=== PATIENT | male | born 1960 | race Hispanic/Latino ===

== ENCOUNTER 2022-12-03 11:07 | Day surgery (SDC) | payer BC ==
--- NOTE | 2022-11-19 10:49 | RAD REPORT ---
EXAM DESCRIPTION: Stewart Escobedo And Graciela (2 Views)11/19/2022 10:23 am CLINICAL HISTORY: Hypertension/preop pending cystoscopy COMPARISON: None FINDINGS: The lungs appear clear of acute infiltrate. The heart is normal size IMPRESSION: No acute abnormalities displayed
[2022-11-19 11:00] LABS: Absolute Lymphocytes (CBC) 1.2 K/uL (0.7-4.9); Hematocrit 46.1 % (39.6-49.0); Lymphocytes % 26.9 % (15.3-44.8); MCV 88.2 fL (80-100); MPV 8.9 fL (7.6-11.3); RBC Red Blood Cell Count 5.23 M/uL (4.33-5.43)
[2022-11-19 11:15] LABS: Potassium 4.1 mmol/L (3.5-5.1)
--- NOTE | 2022-11-19 14:21 | EKG ---
Test Date: 2022-11-19 Test Time: 09:52:56 [employer] Cook: MAXIMINO MEASUREMENT RESULTS: Intervals: Rate: 66 NM: 166 QRSD: 88 QT: 416 QTc: 436 [place]: P: 43 NM: 166 QRS: 47 T: 56 INTERPRETIVE STATEMENTS: Normal sinus rhythm Normal ECG No previous ECG available for comparison Electronically Signed On 11-19-22 14:20:59 TRACK WORKER by Marcial Suarez
[~2022-12-03 11:07] MED LIST: CLINDAMYCIN 600MG/D5W 50 ML IV SCH; Gentamicin Inj 200 MG in NA CHLORIDE 0.9% 100 ML IV SCH
[2022-12-03] MEDS ORDERED: Ringers Lactate 1,000 ML IV ONE ×2 (11:31)
[2022-12-03] MEDS ORDERED: propofoL 200 MG/20 ML VIAL IV ONE (13:02)
[2022-12-03] MEDS ORDERED: FENTANYL CITR 100 MCG/2 ML ONE (13:02)
[2022-12-03] MEDS ORDERED: MIDAZOLAM HCL 2 MG/2 ML INJ ONE (13:03)
[2022-12-03] MEDS ORDERED: ONDANSETRON 4 MG/2 ML VIAL ONE (13:03)
[2022-12-03] MEDS ORDERED: LIDOCAINE 1% MPF 5 ML VIAL ONE (13:03)
[2022-12-03] MEDS ORDERED: CLINDAMYCIN 600MG/D5W 0 ML IV ONE (13:59)
[2022-12-03] MEDS ORDERED: KETOROLAC 30 MG/ML INJ ONE (14:33)
[2022-12-03] MEDS ORDERED: TRAMADOL 37.5mg/APAP 325mg PER TAB PO ONE (14:50)
[2022-12-03] MEDS ORDERED: PHENAZOPYRIDINE 100MG TAB PO ONE (14:50)
--- NOTE | 2022-12-03 16:11 | OP ---
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 2.BPH with obstruction/LUTS. 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 2.BPH with obstruction/LUTS. Principal Procedure: Cystoscopy with bladder biopsies and fulguration. Indication For Procedure: Mr. Salinas presented to [facility] with obstructive urinary symptoms, f ound to be secondary to BPH. He was counseled on options for management to include medications versu s surgery and elected to continue with medical therapy alone. Incidentally during that evaluation cy stoscopically as an outpatient, he was found to have a papillary urothelial lesion approximately 2 mm in diameter emanating lateral to the right ureteral orifice. He was offered the opportunity for off ice based/clinic based cystoscopy with biopsy and fulguration, but he was uncomfortable without appro ach and thus selected to have it done under anesthesia. Procedure In Detail: The patient was consented in the preoperative holding area before being transfe rred to operative suite where general anesthesia was induced. He was given clindamycin and gentamici n IV antimicrobial prophylaxis because of an allergy to penicillin. Pneumo boots were provided for D VT prophylaxis. He was placed in lithotomy position, padded and secured to the table appropriately. His genitalia were prepped with Hibiclens and he was draped in standard fashion. The case was begun using a 22-[place] rigid cystoscope to traverse the urethra and into the bladder with ease. The prev iously observed BPH with elevated median bar was again observed to have the presence of a lateral sul cus associated with that not intravesically projecting median lobe. The bladder was again surveyed i n its entirety, and the only papillary urothelial lesion noted was lateral to the right ureteral orif ice as it had previously been noted. The remainder of the bladder was free of mucosal lesion, foreig n body, or stone. The ureteral orifices were otherwise orthotopic in location and there was clear ur ine. I thus utilized a cold cup biopsy forceps to grasp and remove the lesion intact. Additional mo re peripheral mucosal biopsies were taken to ensure complete resection of that region. I then utiliz ed a Bugbee electrode at a cautery setting of 30 along with sterile water irrigation to fulgurate the base of the biopsy taken and decompressed his bladder to ensure it remained completely hemostatic. With no bleeding noted, I then completely decompressed his bladder and took him out of the lithotomy position. He was then awakened from general anesthesia, transferred to a stretcher, and then transfe rred to the recovery room in good condition. Complications: None. Disposition: He should follow up in the next 2-4 weeks to discuss the results of the biopsy patholog y. Additional, we discussed again options for management of his obstruction due to BPH in the preope rative holding area and response to questions from his . IVANIA/ALEX Voice ID: [id number] Report ID: [id number]
[2022-12-03 16:23] VITALS: BP 106/74; TEMP 96.8; O2SAT 98
== END 2022-12-03 15:52 | disposition home or self-care (01) ==
LOC: OR 11:07
PROVIDERS: ATTEND Urology
PROC: 0TBB8ZX Excision of Bladder, Via Natural or Artificial Opening Endoscopic, Diagnostic (ICD-10-PCS; principal; 2022-12-03 12:45)
DX: D41.4 Neoplasm of uncertain behavior of bladder (principal); N40.1 Benign prostatic hyperplasia with lower urinary tract symptoms
CPT/HCPCS: 52204; 93005; 87088; 85025; 87086; 80048; 36415; 85610; 88305; 71046; J2704; J2001; J1580; J2250; J3010; J7120 ×2; J2405